=== PATIENT | female | born 1985 | race Caucasian/White ===

== ENCOUNTER 2021-02-14 20:35 | Emergency (ER) | payer OTHER ==
[~2021-02-14] VITALS: Ht 162.6 cm; Wt 106.1 kg
[2021-02-14] MEDS ORDERED: MAGNESIUM HYDROXIDE 2,400 MG/30 ML ORAL.SUSP. PO ONE (21:00)
[2021-02-14] MEDS ORDERED: FAMOTIDINE 20 MG/2 ML VIAL IVP ONE (21:00)
[2021-02-14] MEDS ORDERED: ONDANSETRON PF 4 MG/2 ML VIAL. IVP ONE (21:00)
[2021-02-14] MEDS ORDERED: IV RINGERS SOLUTION,LACTATED 1,000 ML IV SCH (21:00)
[2021-02-14] MEDS ORDERED: KETOROLAC 30 MG/ML VIAL. IVP ONE (21:00)
--- NOTE | 2021-02-14 22:00 | EKG ---
[address] [address] Test Date: 2021-02-14 Test Time: 21:13:17 Pat Name: SHERINE [place] Department: Room: Gender: F Trout Farmer: LAURA : 1985 Requested By: HELGA YUAN Order Number: [id number] Reading MD: Measurements Intervals [place] Rate: 106 P: 39 MD: 176 QRS: 11 QRSD: 82 T: 18 QT: 332 QTc: 443 Interpretive Statements SINUS TACHYCARDIA OTHERWISE NORMAL ECG RI6.02 No previous ECG available for comparison
[2021-02-14 22:03] LABS: BASO # 0.1 x10^3/uL (0.0-0.2); BASO % 1 % (0-3); EOS # 0.4 x10^3/uL (0.0-0.7); EOS % 3 % (0-3); HEMATOCRIT 39.3 % (36.0-47.0); HEMOGLOBIN 12.9 g/dL (12.0-15.5); LYMPH # 2.8 x10^3/uL (1.0-4.8); LYMPH % 20 % (24-48); MEAN CORPUSCULAR HEMOGLOBIN 31 pg (25-35); MEAN CORPUSCULAR HGB CONC 33 g/dL (31-37); MEAN CORPUSCULAR VOLUME 95 fL (79-100); MONO # 1.4 x10^3/uL (0.0-1.1); MONO % 10 % (0-9); NEUT # 9.7 x10^3uL (1.8-7.7); NEUT % 68 % (31-73); PLATELET COUNT 300 x10^3/uL (140-400); RED BLOOD COUNT 4.12 x10^6/uL (3.50-5.40); RED CELL DISTRIBUTION WIDTH 13.1 % (11.5-14.5); WHITE BLOOD COUNT 14.4 x10^3/uL (4.0-11.0)
[2021-02-14 22:04] LABS: CALCIUM 8.7 mg/dL (8.5-10.1); CREATININE 0.9 mg/dL (0.6-1.0); GFR 72.1; POTASSIUM 3.9 mmol/L (3.5-5.1)
[2021-02-14 22:11] LABS: ALBUMIN 3.5 g/dL (3.4-5.0); DIRECT BILIRUBIN 0.2 mg/dL (0.0-0.2); TOTAL BILIRUBIN 0.3 mg/dL (0.2-1.0); TOTAL PROTEIN 7.4 g/dL (6.4-8.2)
--- NOTE | 2021-02-14 22:13 | RAD ---
INDICATION: Reason: pain in the chest and abdomen/ Spl. Instructions: / History: COMPARISON: None. IMPRESSION: 4 views of the chest and abdomen obtained. Cardiac silhouette is unremarkable. No focal airspace consolidation to suggest pneumonia. Air scattered throughout the large and small bowel in a grossly nonobstructive pattern. Calcification s are seen in the bilateral pelvis which could be from phleboliths but cannot exclude urinary tract s tone. Electronically signed by: Az Wallace MD (02/14/2021 10:10 PM) [id number]
[2021-02-14 22:20] LABS: BARBITURATES NEG (NEG); BENZODIAZEPINES NEG (NEG); CANNABINOIDS NEG (NEG); COCAINE NEG (NEG); METHADONE NEG (NEG); OPIATES NEG (NEG); PHENCYCLIDINE NEG (NEG)
[2021-02-14 22:21] LABS: AMPHETAMINE/METHAMPHETAMINE NEG (NEG)
--- NOTE | 2021-02-14 22:26 | PHYS DOC ---
Past History Past Medical History: No Pertinent History, Gallstones, GERD, Sciatica Past Surgical History: Tonsillectomy Alcohol Use: Occasionally General Adult EDM: Chief Complaint: ABDOMINAL PAIN HPI: HPI: ".. I hurting really bad.. it been off and on since .. every time I eat some fat loaded foods.. ".." Today in started after only a salad...." Patient is a 35 year old female who presents with above hx and complaints of severe Rt. upper and epigastric pain. Patient has had a history of GERD. No history of bad food intake. No history of CVA ill contacts. No history of travel. No history of tarry stools. No history of immunosuppression. There is a strong family history of gallbladder disease. Patient's pain in right upper quadrant is reproducible on rebound and palpation. Pain sometimes feels like it radiates to her right mid shoulder blade area. Patient normally follows with Dr. Sheets. Patient does have past medical history of sciatica and chronic low back pain. No history of previous abdomen surgeries. Review of Systems: Review of Systems: Constitutional: Denies fever or chills Eyes: Denies change in visual acuity HENT: Denies nasal congestion or sore throat Respiratory: Denies cough or shortness of breath Cardiovascular: Denies chest pain or edema GI: Complains of severe right upper quadrant and epigastric abdominal pain, nausea,. Some vomiting,. Denies bloody stools or diarrhea : Denies dysuria Musculoskeletal: Chronic low back pain and periodic exacerbations of sciatica Integument: Denies rash Neurologic: Denies headache, focal weakness or sensory changes Endocrine: Denies polyuria or polydipsia Lymphatic: Denies swollen glands Psychiatric: Denies depression or anxiety Family History: Family History: Noncontributory to presentation Current Medications: Current Meds: Current Medications Medications (Trade) Dose Ordered Sig/Gris Start Time Stop Time Status Last Admin Dose Admin Famotidine (Pepcid Vial) 20 mg 1X ONCE 02/14/21 21:00 02/14/21 21:44 DC 02/14/21 21:30 20 MG Ketorolac Tromethamine (Toradol 30mg Vial) 30 mg 1X ONCE 02/14/21 21:00 02/14/21 21:44 DC 02/14/21 21:30 30 MG Lactated Ringer's 1,000 ml @ 1,000 mls/hr Q1H 02/14/21 21:00 02/14/21 21:59 DC 02/14/21 21:29 1,000 MLS/HR Magnesium Hydroxide (Milk Of Magnesia) 2,400 mg 1X ONCE 02/14/21 21:00 02/14/21 21:44 DC 02/14/21 21:30 2,400 MG Ondansetron HCl (Zofran) 8 mg 1X ONCE 02/14/21 21:00 02/14/21 21:44 DC 02/14/21 21:30 8 MG Allergies: Allergies: Allergies Coded Allergies Type Severity Reaction Last Updated Verified No Known Drug Allergies 02/14/21 No Physical Exam: PE: Constitutional: In acute distress, non-toxic appearance. [] HENT: Normocephalic, atraumatic, bilateral external ears normal, oropharynx moist, no oral exudates, nose normal. [] Eyes: PERRLA, EOMI, conjunctiva normal, no discharge. [] Neck: Normal range of motion, no tenderness, supple, no stridor. [] Cardiovascular:Heart rate regular rhythm, no murmur [] Lungs & Thorax: Bilateral breath sounds equal apex with few scattered wheezes on auscultation [] Abdomen: Bowel sounds normal, soft, right upper quadrant and epigastric tenderness, no masses, no pulsatile masses. [Rebound right upper quadrant and ep igastric. Obese Skin: Warm, dry, no erythema, no rash. [] Back: Lower lumbar sacral tenderness, no CVA tenderness. [] Extremities: No tenderness, no cyanosis, no clubbing, ROM intact, no edema. [] Neurologic: Alert and oriented X 3, normal motor function, normal sensory function, no focal deficits noted. [] DTRs +2 patella and brachial. Amatory without problems. Psychologic: Affect anxious judgement normal, mood normal. [] Current Patient Data: Labs: Laboratory Tests Test 02/14/21 21:00 02/14/21 21:13 02/14/21 21:20 Urine Opiates Screen Neg (NEG) Urine Methadone Screen Neg (NEG) Urine Barbiturates Neg (NEG) Urine Phencyclidine Screen Neg (NEG) Urine Amphetamine/Methamphetamine Neg (NEG) Urine Benzodiazepines Screen Neg (NEG) Urine Cocaine Screen Neg (NEG) Urine Cannabinoids Screen Neg (NEG) Urine Ethyl Alcohol Neg (NEG) POC Urine HCG, Qualitative hcg negative (Negative) White Blood Count 14.4 x10^3/uL (4.0-11.0) H Red Blood Count 4.12 x10^6/uL (3.50-5.40) Hemoglobin 12.9 g/dL (12.0-15.5) Hematocrit 39.3 % (36.0-47.0) Mean Corpuscular Volume 95 fL (79-100) Mean Corpuscular Hemoglobin 31 pg (25-35) Mean Corpuscular Hemoglobin Concent 33 g/dL (31-37) Red Cell Distribution Width 13.1 % (11.5-14.5) Platelet Count 300 x10^3/uL (140-400) Neutrophils (%) (Auto) 68 % (31-73) Lymphocytes (%) (Auto) 20 % (24-48) L Monocytes (%) (Auto) 10 % (0-9) H Eosinophils (%) (Auto) 3 % (0-3) Basophils (%) (Auto) 1 % (0-3) Neutrophils # (Auto) 9.7 x10^3uL (1.8-7.7) H Lymphocytes # (Auto) 2.8 x10^3/uL (1.0-4.8) Monocytes # (Auto) 1.4 x10^3/uL (0.0-1.1) H Eosinophils # (Auto) 0.4 x10^3/uL (0.0-0.7) Basophils # (Auto) 0.1 x10^3/uL (0.0-0.2) Prothrombin Time 10.1 SEC (9.4-11.4) Prothrombin Time INR 1.0 (0.9-1.1) Activated Partial Thromboplast Time 29 SEC (23-33) Maternal Serum HCG Beta Subunit < 1 mIU/mL (0-6) Sodium Level 141 mmol/L (136-145) Potassium Level 3.9 mmol/L (3.5-5.1) Chloride Level 107 mmol/L (98-107) Carbon Dioxide Level 28 mmol/L (21-32) Anion Gap 6 (6-14) Blood Urea Nitrogen 9 mg/dL (7-20) Creatinine 0.9 mg/dL (0.6-1.0) Estimated GFR (Cockcroft-Gault) 72.1 Glucose Level 99 mg/dL (70-99) Calcium Level 8.7 mg/dL (8.5-10.1) Total Bilirubin 0.3 mg/dL (0.2-1.0) Direct Bilirubin 0.2 mg/dL (0.0-0.2) Aspartate Amino Transferase (AST) 147 U/L (15-37) H Alanine Aminotransferase (ALT) 113 U/L (14-59) H Alkaline Phosphatase 134 U/L (46-116) H Creatine Kinase 61 U/L (26-192) Troponin I Quantitative < 0.017 ng/mL (0-0.055) Total Protein 7.4 g/dL (6.4-8.2) Albumin 3.5 g/dL (3.4-5.0) Amylase Level 62 U/L (25-115) Lipase 107 U/L (73-393) Vital Signs: Vital Signs Date Time Temp Pulse Resp B/P (MAP) Pulse Ox O2 Delivery O2 Flow Rate FiO2 02/14/21 20:53 98.9 111 18 139/76 (97) 98 EKG: EKG: My interpretation EKG shows a sinus tachycardia 106 bpm. No acute morphology other than the tachycardia appreciated [] Radiology/Procedures: Radiology/Procedures: [][address] [address] IMAGING REPORT Signed PATIENT: SHERINE NJ ACCOUNT: [id number] : 1985 LOCATION: ER AGE: 35 SEX: F EXAM STATUS: REG ER ORD. PHYSICIAN: HELGA YUAN MD REASON: OMNI 240,30ML PO.OMNI 300,75ML IV.Rt upper & epigastric pain PROCEDURE: CT ABD PELV W/ORAL&IV CONTRAST CT abdomen and pelvis with contrast PQRS statement: CT scans at this facility use dose reduction including either automated exposure control, iterative reconstructions, and /or weight based radiation dosing via mA and kV modification when appropriate to reduce radiation dose to as low as reasonably achievable. Contrast: 75 mL Omnipaque 300 intravenous contrast. HISTORY: Right upper quadrant abdominal pain. Epigastric abdominal pain. Abdomen findings: Gallbladder is packed with gallstones. Mild distended extrarenal pelves of the kidneys and ureters. Kidneys, adrenal glands, pancreas, spleen and liver are unremarkable. Appendix is negative. No obstruction or inflammation the GI tract. No abdominal fluid or adenopathy. Lung bases unremarkable. Large disc herniation L4-5 with severe spinal canal stenosis. Pelvis findings: Tiny subcentimeter ovarian hypodensity most likely follicles. Bladder, uterus, rectum and bones are unremarkable. No pelvic fluid or adenopathy. IMPRESSION: 1. No acute process. Appendix is negative. 2. Cholelithiasis. 3. Incidental findings as described above. Electronically signed by: Jodi Grimm MD (02/15/2021 12:13 AM) [facility] [place] DICTATED AND SIGNED BY: JODI GRIMM MD DATE: 02/15/216 CC: HELGA YUAN MD; PAMELA SHEETS MD ~MTH0 0 Heart Score: C/O Chest Pain: N/A HEART Score for Chest Pain: HEART Score for Chest Pain Response (Comments) Value History Slighlty/Non-Suspicious 0 ECG Normal 0 Age < 45 0 Risk Factors 1 or 2 Risk Factors 1 Troponin < Normal Limit 0 Total 1 Risk Factors: Risk Factors: DM, Current or recent (<one month) smoker, HTN, HLP, family history of CAD, obesity. Risk Scores: Score 0 - 3: 2.5% MACE over next 6 weeks - Discharge Home Score 4 - 6: 20.3% MACE over next 6 weeks - Admit for Clinical Observation Score 7 - 10: 72.7% MACE over next 6 weeks - Early Invasive Strategies Course & Med Decision Making: Course & Med Decision Making Pertinent Labs and Imaging studies reviewed. (See chart for details) Patient's epigastric and right upper quadrant pain with elevated AST, ALT and alk phos suggestive of biliary colic as a source for her pain. Patient declines transfer to [facility] at this time. States she wishes to try outpatient therapy until she can get her affairs in order. Patient advised that she should remain on a clear fluid diet, no milk products no solids until follow-up. If patient develops a marked exacerbation of pain she should present to the hospital it has surgical capability such both [facility]. Suspect at some point patient will need a cholecystectomy. Will do an outpatient course of Flagyl 3 times daily and Keflex 3 times daily both 500 mg each, Pepcid 20 mg twice a day, Zofran 8 mg at 4 times a day for nausea and vomiting. Patient remain on clear fluid diet. Patient likes outpatient follow- up to get an outpatient gallbladder study for function. Impression: 1. Abdomen pain 2. Biliary colic with gallstones 3. Elevated AST 147, ALT 113 and alk phos 134 4. Leukocytosis 14.4 5. Chronic low back pain and sciatica [] Dragon Disclaimer: Dragon Disclaimer: This electronic medical record was generated, in whole or in part, using a voice recognition dictation system. Departure Departure: Referrals: PAMELA SHEETS MD (PCP) Scripts Ondansetron Hcl (ZOFRAN) 4 Mg Tablet 8 MG PO QIDPRN PRN for NAUSEA/VOMITING, #30 TAB Prov: HELGA YUAN MD 02/15/21 Metronidazole (FLAGYL) 500 Mg Tablet 500 MG PO TID for leukocytosis for 7 Days, #21 TAB Prov: HELGA YUAN MD 02/15/21 Cephalexin (KEFLEX) 750 Mg Capsule 500 MG PO TID for leukocygtosis for 7 Days, #21 CAP Prov: HELGA YUAN MD 02/15/21 Hydrocodone/Ibuprofen (HYDROCODONE-IBUPROFEN 7.5-200 ) 1 Each Tablet 1 TAB PO PRN Q6HRS PRN for PAIN, #30 TAB 0 Refills Prov: HELGA YUAN MD 02/15/21 Famotidine (PEPCID) 20 Mg Tablet 1 TAB PO BID for gerd, #60 TAB 3 Refills Prov: HELGA YUAN MD 02/15/21 Dragon Disclaimer This chart was dictated in whole or in part using Voice Recognition software in a busy, high-work load, and often noisy Emergency Department environment. It may contain unintended and wholly unrecognized errors or omissions. HELGA YUAN MD Feb 14, 2021 22:26
[2021-02-14 22:28] LABS: BACTERIA,URINE FEW /HPF (0-FEW); BILIRUBIN,URINE NEG (NEG); CLARITY,URINE CLOUDY; COLOR,URINE YELLOW; GLUCOSE,URINE NEG (NEG); NITRITE,URINE NEG (NEG); RBC,URINE RARE /HPF (0-2); SQUAMOUS EPITHELIAL CELL,UR OCC /LPF; WBC,URINE RARE /HPF (0-4)
[2021-02-14] MEDS ORDERED: IOHEXOL 240 MG/ML 50ML VIAL. ONE (22:33)
[2021-02-14] MEDS ORDERED: CONTRAST GIVEN. MC PRN (22:45)
[2021-02-14] MEDS ORDERED: IOHEXOL 300 MG/ML 75 ML VIAL. IV ONE (23:00)
[2021-02-14] MEDS ORDERED: cefTRIAXone SODIUM 1 GM VIAL ONE (23:34)
[2021-02-14] MEDS ORDERED: IV NORMAL SALINE 50ML 50 ML ONE (23:34)
--- NOTE | 2021-02-15 00:15 | RAD ---
CT abdomen and pelvis with contrast PQRS statement: CT scans at this facility use dose reduction including either automated exposure cont rol, iterative reconstructions, and /or weight based radiation dosing via mA and kV modification when appropriate to reduce radiation dose to as low as reasonably achievable. Contrast: 75 mL Omnipaque 300 intravenous contrast. HISTORY: Right upper quadrant abdominal pain. Epigastric abdominal pain. Abdomen findings: Gallbladder is packed with gallstones. Mild distended extrarenal pelves of the kidn eys and ureters. Kidneys, adrenal glands, pancreas, spleen and liver are unremarkable. Appendix is ne gative. No obstruction or inflammation the GI tract. No abdominal fluid or adenopathy. Lung bases unr emarkable. Large disc herniation L4-5 with severe spinal canal stenosis. Pelvis findings: Tiny subcentimeter ovarian hypodensity most likely follicles. Bladder, uterus, rectu m and bones are unremarkable. No pelvic fluid or adenopathy. IMPRESSION: 1. No acute process. Appendix is negative. 2. Cholelithiasis. 3. Incidental findings as described above. Electronically signed by: Cristian Grimm MD (02/15/2021 12:13 AM) [facility]
[2021-02-15] MEDS ORDERED: HYDR-1179 PO (01:03)
[2021-02-15] MEDS ORDERED: METR500T PO (01:03)
[2021-02-15] MEDS ORDERED: FAMO-63 PO (01:03)
[2021-02-15] MEDS ORDERED: ONDA4TAB7 PO (01:03)
[2021-02-15] MEDS ORDERED: CEPH750C9 PO (01:03)
[2021-02-15 01:15] VITALS: BP 110/67
== END 2021-02-15 01:22 | disposition home or self-care (01) ==
LOC: ER 20:35
DX: K80.70 Calculus of gallbladder and bile duct without cholecystitis without obstruction (principal); R79.89 Other specified abnormal findings of blood chemistry; D72.829 Elevated white blood cell count, unspecified; G89.29 Other chronic pain; M54.40 Lumbago with sciatica, unspecified side; K21.9 Gastro-esophageal reflux disease without esophagitis
CPT/HCPCS: 36415; 74022; 74177; 80048; 80076; 80307; 81001; 81025; 82150; 82550; 83690; 84484; 84702; 85025; 85610; 85730; 93005; 96361; 96365; 96367; 96375; 99285; J0696; J1885; J2405; J3490; J7120; Q9967